=== PATIENT | male | born 1955 | race Caucasian/White ===

== ENCOUNTER 2021-02-17 21:23 | Emergency (ER) | payer SELFPAY ==
[~2021-02-17] VITALS: Ht 172.7 cm; Wt 90.7 kg
[~2021-02-17 21:23] MED LIST: CALCIUM600 MG PO; GEMFIBROZIL600 MG PO; PERCOCET 7.5-31 EACH PO; VITAMIN C500 M1 PO
[2021-02-17] MEDS ORDERED: MOTION SICKNESS25 M1 PO (23:22)
--- NOTE | 2021-02-18 06:52 | EKG ---
[facility] [address] [facility] [place], [place] [address] Signed Sinus bradycardia Otherwise normal ECG No previous ECGs available Confirmed by SYLVIA FERNANDES MD ([id number]) on 02/18/2021 6:52:41 AM Electronically Signed By: SYLVIA FERNANDES MD 02/18/21 0652 PATIENT NAME: TERRENCETATYANA D Electrocardiogram DATE OF : 59 PHYSICIAN: SYLVIA FERNANDES MD REPORT #: [id number] REPORT IS CONFIDENTIAL AND NOT TO BE RELEASED WITHOUT AUTHORIZATION
== END 2021-02-17 23:38 | disposition home or self-care (01) ==
LOC: ED 21:23
DX: H81.11 Benign paroxysmal vertigo, right ear (principal)
CPT/HCPCS: 80053; 83735; 84484; 85025; 93005; 93010; 99284-25

== ENCOUNTER 2023-12-22 07:14 | Day surgery (SDC) | payer MEDICARE, OTHER ==
[~2023-12-22] VITALS: Ht 172.7 cm; Wt 93.2 kg
[~2023-12-22 07:14] MED LIST changes: +IBLOOD GLUCOSE TEST STRIP 1 EA TEST VI PRN; +LACTATED RINGER'S 1,000 ML IV SCH; +LIDOCAINE HCL 1% 5 ML SDV INJ ONE; +MIDAZOLAM HCL 5 MG/5 ML VIAL IV PRN; +MOTION SICKNESS25 M1 PO; +fentaNYL citrate 100 MCG/2 ML VIAL IV PRN
[2023-12-22 07:38] VITALS: BP 139/68
[2023-12-22] MEDS ORDERED: VITAMIN B12500 MCG PO (07:40)
[2023-12-22] MEDS ORDERED: VITAMIN D325 MC2 PO (07:40)
[2023-12-22] MEDS ORDERED: LISINOPRIL-HCT1 EACH PO (07:40)
[2023-12-22] MEDS ORDERED: GARLIC100 MG PO (07:41)
[2023-12-22] MEDS ORDERED: HAWTHORN150 MG PO (07:41)
[2023-12-22] MEDS ORDERED: fentaNYL citrate 100 MCG/2 ML VIAL ONE (08:22)
[2023-12-22] MEDS ORDERED: MIDAZOLAM HCL 5 MG/5 ML VIAL ONE (08:22)
--- NOTE | 2023-12-22 09:33 | NUR ---
12/22/23 0933 Lorene Freeman 0915 PT ARRIVED IN PACU SLEEPY. ABD SOFT AND PASSING FLATUS. 025 DR AT BEDSIDE. ALL QUESTIONS ANSWERED. 0933 RESTING. REU.
[2023-12-22 09:57] VITALS: BP 113/66
--- NOTE | 2023-12-25 17:56 | PATH ---
[facility] [address] [facility] [place], [place] [address] Signed SPECIMEN(S): A LEFT COLON POLYP SPECIMEN(S): B CECUM POLYP SPECIMEN(S): C TRANSVERSE POLYP SPECIMEN(S): D SIGMOID POLYP SPECIMEN SOURCE: A. LEFT COLON POLYP B. CECUM POLYP C. TRANSVERSE POLYP D. SIGMOID POLYP CLINICAL HISTORY: History of serrated adenoma and hyperplastic polyps FINAL PATHOLOGIC DIAGNOSIS: A. Left colon polyp: - Benign colonic mucosa with polypoid features and incidental mucosal lymphoid aggregate with reactive change. B. Cecum polyp: - Polypoid colonic mucosa with mild active colitis (nonspecific). - Negative for dysplasia. C. Transverse polyp: - Benign colonic mucosa with focally increased epithelial lymphocytes (nonspecific). - Negative for epithelial dysplasia. D. Sigmoid polyp: - Tubular adenoma (one fragment). COMMENT: Given the fact that specimens B and C are from clinically apparent "polyps", the significance of the epithelial inflammation in the setting lacking the history of bowel habit changes is uncertain. Clinical correlation requested. LONG:armand MICROSCOPIC EXAMINATION: Histologic sections of all submitted blocks are examined by light microscopy. These findings, together with the gross examination, support the pathologic diagnosis. GROSS DESCRIPTION: PATIENT NAME: TATYANA OCAMPO PATHOLOGY DATE OF : 59 REPORT #: [id number] PHYSICIAN: PERLA ESQUIVEL PCP: CEM SALAZAR PAC REPORT IS CONFIDENTIAL AND NOT TO BE RELEASED WITHOUT AUTHORIZATION [facility] [address] [place], [place] [address] Signed A. The specimen, labeled and designated "Sheldon, left colon polyp," is received in formalin and consists of one garay soft tissue fragment, 0.5 cm. Entirely submitted in (A1). B. The specimen, labeled and designated "Murali, cecum polyp," is received in formalin and consists of one garay soft tissue fragment, 0.3 cm. Entirely submitted in (B1). C. The specimen, labeled and designated "Sheldon, transverse polyp," is received in formalin and consists of four garay soft tissue fragments, ranging from 0.1-0.2 cm. Entirely submitted in (C1). D. The specimen, labeled and designated "Sheldon, sigmoid polyp," is received in formalin and consists of one garay soft tissue fragment, 0.5 cm. Entirely submitted in (D1). VB (under the direct supervision of a pathologist) The Gross Description was prepared using a voice recognition system. The report was reviewed for accuracy; however, sound-alike word errors, addition and/or deletions may occur. If there is any question about this report, please contact Client Services. PERFORMING LABORATORY: Technical component was performed by [facility], [address] [place] [id number] (CLIA# [id number]). Professional interpretation was performed by [facility], [address] [place] [address], [place] [address] (CLIA#: [id number]). Diagnostician: Johnnie Ball MD Pathologist Electronically Signed 12/25/2023 Copies: ~ PATIENT NAME: TATYANA OCAMPO PATHOLOGY DATE OF : 59 REPORT #: [id number] PHYSICIAN: PERLA PATHOLOGY PCP: CEM SALAZAR PAC REPORT IS CONFIDENTIAL AND NOT TO BE RELEASED WITHOUT AUTHORIZATION
--- NOTE | 2023-12-27 10:52 | OR ---
[facility] [address] [place], [place] [address] Signed DATE OF OPERATION: 12/22/2023 SURGEON: Nikita Cho MD PREOPERATIVE DIAGNOSIS: History of serrated adenoma, 2008 and hyperplastic polyp 2013. POSTOPERATIVE DIAGNOSIS: Polyps x4. PROCEDURE: Total colonoscopy to cecum with cold snare polypectomy x1, cold morcellation polypectomy x3. ANESTHESIA: Intravenous sedation; fentanyl 100 mcg and Versed 5 mg. INDICATION: This 68-year-old white man is referred for screening colonoscopy by BRANDO Ding, his provider. He has no symptoms of bleeding, diarrhea or constipation. He did undergo excision of a serrated adenoma in 2008 and subsequent followup colonoscopy in 2013 showed at least one hyperplastic polyp. He has no current symptoms of bleeding, diarrhea or constipation. No family history of colon cancer. He understands risk of bleeding, infection, and perforation related to colonoscopy and wished to proceed. FINDINGS: The prep was good. Complete colonoscopy was undertaken to the cecum. There was a small polyp in the cecum excised with cold morcellation technique. Another very small one in the transverse colon and another in the left colon and a slightly larger nonpedunculated sessile polyp of the sigmoid, excised with cold snare technique. PROCEDURE IN DETAIL: The patient was brought to the endoscopy suite and placed in lateral decubitus position, given intravenous sedation to the point of slurred speech and nystagmus. Digital rectal examination was normal. An Olympus video colonoscope was passed in the rectum and manipulated throughout the colon. In the left colon, was a small polyp, which was excised with cold morcellation technique. Narrow-band imaging was used to confirm the suspicion of polyp, though it was quite small. The scope was advanced further ultimately to the cecum. The ileocecal Electronically Signed By: NIKITA CHO MD 12/27/23 1052 PATIENT NAME: TATYANA OCAMPO OPERATIVE REPORT DATE OF : 59 REPORT #: [id number] PHYSICIAN: NIKITA CHO MD PCP: CEM SALAZAR PAC REPORT IS CONFIDENTIAL AND NOT TO BE RELEASED WITHOUT AUTHORIZATION [facility] [address] [place], [place] [address] Signed valve and appendiceal orifice were normal. Near the appendiceal orifice was a small polyp, which was adenomatous almost certainly. It was excised with cold morcellation technique. The scope was further withdrawn. In the left transverse colon, a small polyp was noted, this was excised with cold morcellation technique as well. The scope was further withdrawn and in the sigmoid, a sessile polyp, somewhat larger, was identified and excised with cold snare technique completely. Further withdrawal out for retroflex view in the rectum, which was normal. Scope was removed. The patient was taken to the recovery room in good condition. CONCLUDING DIAGNOSIS: Polyps x4. PLAN: Recommend repeat colonoscopy in three years, sooner if clinically indicated. He will return to the ongoing care of Cem Salazar. MD YANI Mccartney/ISRRAEL /[id number] cc: Cem Salazar PA-C Copies: ~ Electronically Signed By: NIKITA CHO MD 12/27/23 1052 PATIENT NAME: TATYANA OCAMPO OPERATIVE REPORT DATE OF : 59 REPORT #: [id number] PHYSICIAN: NIKITA CHO MD PCP: CEM SALAZAR PAC REPORT IS CONFIDENTIAL AND NOT TO BE RELEASED WITHOUT AUTHORIZATION
== END 2023-12-22 10:05 | disposition home or self-care (01) ==
LOC: DS 07:14 → OPS 07:14 → DS 08:30 → OPS 10:05
PROVIDERS: ATTEND Surgery
PROC: 0DBL8ZX Excision of Transverse Colon, Via Natural or Artificial Opening Endoscopic, Diagnostic (ICD-10-PCS; 2023-12-22)
PROC: 0DBN8ZX Excision of Sigmoid Colon, Via Natural or Artificial Opening Endoscopic, Diagnostic (ICD-10-PCS; 2023-12-22)
PROC: 0DBG8ZX Excision of Left Large Intestine, Via Natural or Artificial Opening Endoscopic, Diagnostic (ICD-10-PCS; 2023-12-22)
PROC: 0DBH8ZX Excision of Cecum, Via Natural or Artificial Opening Endoscopic, Diagnostic (ICD-10-PCS; principal; 2023-12-22 08:30)
DX: Z12.11 Encounter for screening for malignant neoplasm of colon (principal); K52.9 Noninfective gastroenteritis and colitis, unspecified; D12.5 Benign neoplasm of sigmoid colon; I10 Essential (primary) hypertension; K60.1 Chronic anal fissure; Z86.010 Personal history of colon polyps
CPT/HCPCS: 88305; 99153; G0500; J2250; J3010; J7121